=== PATIENT | male | born 1945 | race Caucasian/White ===

== ENCOUNTER → 2018-08-27 | Outpatient (CLI) | payer OTHER ==
[~2018-08-27] VITALS: Ht 180.3 cm; Wt 65.3 kg
[~2018-08-27] MED LIST: ASPIR 8181 MG PO; CO Q-10100 M1 PO; CRESTOR20 MG PO; FISH OIL 1,001000 M2 PO; LISINOPRIL10 MG PO; MIRTAZAPINE7.5 MG PO; PACERONE 200 M200 M1 PO; PAXIL10 MG PO; PROBIOTIC1 EAC1 PO; SPIRONOLACTONE25 M1 PO; VITAMIN D31000 UNIT PO
--- NOTE | 2018-08-27 12:44 | P ---
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 He has had an unexplained weight loss of about 26 pounds, which actually started several months prior to that diagnosis. Additional symptoms include anorexia and early satiety. The patient tells me initial workup with laboratory studies and imaging by Dr. Stroud were nondiagnostic. He denies any other GI symptoms. Specifically, there is no pain. He has had nausea, but no vomiting. PREOPERATIVE DIAGNOSES: Weight loss, anorexia and early satiety. POSTOPERATIVE DIAGNOSES: 1. A 2-3 cm sliding type hiatus hernia. 2. Mild erythematous gastritis. MEDICATIONS: Deep sedation with propofol per anesthesia. SPECIMENS: 1. Small bowel biopsy to rule out celiac disease. 2. Biopsies of gastritis to rule out Helicobacter pylori. ESTIMATED BLOOD LOSS: 3 mL. PROCEDURE: EGD with biopsy. FINDINGS: Prior to propofol sedation, the procedure of upper endoscopy was discussed with the patient as well as potential risks and its complications. He indicates he understands and desires to proceed. With the patient in the left lateral decubitus position, the Olympus video endoscope was inserted in the cervical esophagus under direct vision without difficulty. Examination of this organ through its entire length revealed normal esophageal mucosa down to the squamocolumnar junction. Squamocolumnar junction was inspected and noted to be unremarkable. The scope was advanced into a 2-3 cm sliding type hiatus hernia. The mucosa in the hernia was unremarkable. The scope was advanced fully into the stomach, which was examined on end view as well as retroflexed views. Examination of the stomach revealed patchy erythematous gastritis in the antrum. No ulcers or erosions were seen. There were no retained solids or liquids. There was no endoscopic evidence of outlet obstruction. Upon retroflexion, the hiatus hernia was seen. No other abnormalities were identified. Biopsies were obtained of the gastric mucosa. [address] [address] PROCEDURE REPORT Name: ALLYN KWON Room #: REG [facility] Boy#: [id number] Admission: 08/27/18 Attend Phys: Allyn Arellano MD Discharge: Date of : 43 Report #: [id number] The pylorus, duodenal bulb and postbulbar duodenal sweep were inspected and noted to be unremarkable. At that point, the scope was slowly withdrawn and careful circumferential views confirmed the above finding. Small bowel biopsy obtained to evaluate for celiac disease. The patient tolerated the procedure well. CONDITION OF THE PATIENT UPON DISCHARGE: Following procedure, the patient drowsy. He will be discharged home when fully ambulatory. INSTRUCTIONS TO THE PATIENT AND FAMILY AT THE TIME OF DISCHARGE: He has a mild gastritis, which is probably not clinically significant. The hiatus hernia also is not likely clinically significant factor with regards to his symptoms and problems. We will follow up on biopsies obtained today. We will have him proceed with a gastric emptying study to evaluate for gastroparesis. It is of interest to note that he actually started losing weight prior to his exposure and diagnosis of Yancey spotted fever. It is noted he does not have diabetes and reports there is no significant thyroid disease. There has been no recent change in medications. We will follow up on biopsies and follow through with gastric emptying study and make further recommendations as needed. <ELECTRONICALLY SIGNED> By: Allyn Arellano MD 08/27/18 1244 0930 1002 Allyn Arellano MD /nt
--- NOTE | 2018-08-31 16:10 | PATH ---
[facility] [address] [place] [address] PATHOLOGY RPT PROCEDURE Name: ALLYN OAKES Room #: REG [facility] [employer]#: [id number] Admission: 08/27/18 Date of : 43 Discharge: Report #: [id number] Path Case #: [id number] [facility] Accession Number: [id number] . 01 Material submitted: . PART A: BX SMALL BOWEL PART B: BX GASTRITIS . 01 Clinical history: . Weight loss Hiatus hernia, gastritis A: Rule out celiac disease B: Rule out H. pylori . 02 Diagnosis: A. Small bowel mucosa, rule out celiac disease, endoscopic biopsy: - No diagnostic abnormalities present. - Negative for villous blunting or increase in intraepithelial lymphocytes. . B. Gastric mucosa, gastritis rule out Helicobacter pylori, endoscopic biopsy: - Mild chronic active gastritis with features of reactive gastropathy. - Negative for intestinal metaplasia or atrophy. - Negative for Helicobacter pylori (properly controlled immunohistochemical stain performed). . (IUV:at;08/31/2018) QTA/08/31/2018 . 02 Electronically signed: . Mary Brandt MD, Pathologist NPI- [id number] . 01 Gross description: . A. The specimen is received in formalin, labeled "Allyn Oakes, small bowel BX" and consists of multiple fragments of soft palm tissue measuring 1.3 x 0.6 x 0.3 cm in aggregate which are entirely submitted in A1. . B. The specimen is received in formalin, labeled "Allyn Oakes, BX gastritis" and consists of multiple fragments of soft palm tissue measuring 1.4 x 0.6 x 0.2 cm in aggregate which are entirely submitted in B1. (SDY; 08/28/2018) SYU/SYU . 02 Pathologist provided ICD-10: K29.50, R63.4 [place] [address] PATHOLOGY RPT PROCEDURE Name: ALLYN OAKESJEISON Room #: REG CLI [facility]#: [id number] Admission: 08/27/18 Date of : 43 Discharge: Report #: [id number] Path Case #: [id number] . 02 CPT . 798464, [id number], [id number] Specimen Comment: A courtesy copy of this report has been sent to Specimen Comment: [phone], . Specimen Comment: Report sent to and Performed at: [address], [place], [place] [id number] MD Bertrand Felder MD Phone: [phone] Performed at: [address] [id number] MD Mary Brandt MD Phone: [phone]
== END | disposition home or self-care (01) ==
LOC: GI 06:28
DX: K29.50 Unspecified chronic gastritis without bleeding (principal); K44.9 Diaphragmatic hernia without obstruction or gangrene; K31.9 Disease of stomach and duodenum, unspecified; I10 Essential (primary) hypertension; E78.00 Pure hypercholesterolemia, unspecified; Z79.899 Other long term (current) drug therapy; Z79.82 Long term (current) use of aspirin; Z95.1 Presence of aortocoronary bypass graft; Z95.810 Presence of automatic (implantable) cardiac defibrillator; Z98.890 Other specified postprocedural states
CPT/HCPCS: 62110; 62900

== ENCOUNTER → 2018-09-14 | Outpatient (CLI) | payer OTHER ==
[~2018-09-14] MED LIST changes: +CARVEDILOL3.125 MG PO
== END ==
LOC: CAT 12:49
DX: J98.11 Atelectasis (principal); K75.9 Inflammatory liver disease, unspecified; R19.5 Other fecal abnormalities

== ENCOUNTER 2018-09-15 13:06 | Inpatient (IN) | payer OTHER ==
[~2018-09-15] VITALS: Ht 180.3 cm; Wt 67.9 kg
[~2018-09-15 13:06] MED LIST changes: -CARVEDILOL3.125 MG PO
[2018-09-15 15:10] VITALS: BP 87/54
[2018-09-15] MEDS ORDERED: CARVEDILOL3.125 MG PO (16:06)
[2018-09-15 18:08] LABS: BASOPHILS 0.8 % (0.0-2.0); EOSINOPHILS 0.3 % (0.0-3.0); HEMATOCRIT 46.1 % (42.0-52.0); HEMOGLOBIN 15.4 gm/dL (14.0-18.0); LYMPHOCYTES 6.3 % (24.0-44.0); MCHC 33.4 g/dL (28.0-37.0); MCV 86.9 fL (80.0-100.0); MONOCYTES 4.4 % (1.0-8.0); PLATELET COUNT 298 thou/uL (150-400); POLYS 88.2 % (36.0-66.0); RDW 18.2 % (10.5-14.5); WBC 19.2 thou/uL (4.0-11.0)
[2018-09-15 18:21] LABS: ALBUMIN 2.6 g/dL (3.4-5.0); CALCIUM 8.7 mg/dL (8.5-10.1); CREATININE 1.7 mg/dL (0.7-1.3); POTASSIUM 4.2 mmol/L (3.5-5.1); TOTAL BILIRUBIN 1.3 mg/dL (<0.1-1.0); TOTAL PROTEIN 7.2 g/dL (6.4-8.2)
--- NOTE | 2018-09-15 18:35 | NUR ---
VSS REMAINS NSR WITH PVC'S AND A PACED BEATS. LUNGS CLEAR RA SAT IS 96%. UP IN ROOM INDEPENDENTLY. NO C/O CHEST PAIN SOB. APPETITE REMAINS POOR, NO C/O NAAUSEA. WILL CONTINUE TO MONITER AND CARE FOR PT PER PLAN OF CARE
[2018-09-15 18:53] LABS: ANISOCYTOSIS 1+
[2018-09-15 19:12] LABS: INR 1.3; PROTIME 13.3 Seconds (9.3-11.4)
[2018-09-15 19:19] LABS: % SATURATION 54 % (20-39); IRON 82 ug/dL (65-175); TIBC 153 ug/dL (250-450)
[2018-09-15 20:24] VITALS: BP 80/51
[2018-09-15 22:55] VITALS: BP 108/67
[2018-09-15 23:31] VITALS: BP 98/62
[2018-09-15 23:49] VITALS: BP 149/84
--- NOTE | 2018-09-16 00:55 | NUR ---
2029 DAYAN STILL SOFT (80'S/40'S) DR. JAIMES ADVISED SOTALOL IS TO BE STARTED AT 2100. WILL RUN 0.5 L NS AND NS@ 10ML/H X 1 LITRE AND GIVE SOTALOL ORIGINALLY ORDERED. 2300 - PT RESPONDING FAVORABLY TO FLUIDS. NAD.
[2018-09-16 05:15] VITALS: BP 117/77
[2018-09-16 08:00] VITALS: BP 100/72
--- NOTE | 2018-09-16 08:19 | EKG ---
[place] [address] [facility] [place] [address] ELECTROCARDIOGRAM REPORT Name: ALLYN KWON Room #: 212-P ADM IN M.R.#: [id number] Admission: 09/15/18 Attend Phys: Trent Julio MD Discharge: Date of : 43 Report #: [id number] THIS REPORT FOR: //name// [facility] Test Date: 2018-09-15 Test Time: 15:19:13 Pat Name: ALLYN KWON Department: Room: Gender: M Explosive Ordnance Handler: Cuco VIDAL : 1945 Requested By: Perry Timmons Order Number: [id number] MD: Perry Timmons Measurements Intervals [place] Rate: 60 P: DC: 183 QRS: 23 QRSD: 134 T: 23 QT: 449 QTc: 449 Interpretive Statements Atrial-paced rhythm Nonspecific intraventricular conduction delay Inferior infarct, old Baseline wander in lead(s) V3 Compared to ECG 01/25/2006 11:03:54 atrial pacing is now present Ventricular premature complex(es) no longer present Electronically Signed On 09-16-2018 8:19:31 SHAKE FEEDER by Perry Timmons [email or web address] <ELECTRONICALLY SIGNED> By: Perry Timmons MD, [facility] 09/16/18 0819 1519 1519 Perry Timmons MD, [facility] /EPI
--- NOTE | 2018-09-16 08:36 | EKG ---
[place] [address] [facility] [place] [address] ELECTROCARDIOGRAM REPORT Name: ALLYN KWON Room #: 212-P ADM IN M.R.#: [id number] Admission: 09/15/18 Attend Phys: Trent Julio MD Discharge: Date of : 43 Report #: [id number] THIS REPORT FOR: //name// [facility] Test Date: 2018-09-16 Test Time: 07:14:59 Pat Name: ALLYN KWON Department: Room: 212 P Gender: M Producer Arborist Manager: ANGELA : 1945 Requested By: Patricia Bonilla Order Number: [id number] MD: Perry Timmons Measurements Intervals [place] Rate: 60 P: [place]: 215 QRS: -4 QRSD: 128 T: 27 QT: 509 QTc: 509 Interpretive Statements Atrial-paced rhythm Nonspecific intraventricular conduction delay Inferior infarct, old Compared to ECG 01/25/2006 11:03:54 QT interval has lengthened Electronically Signed On 09-16-2018 8:36:23 PETROLEUM INSPECTOR by Perry Timmons [email or web address] <ELECTRONICALLY SIGNED> By: Perry Timmons MD, [facility] 09/16/18 0836 3 3 Perry Timmons MD, [facility] /EPI
[2018-09-16 11:54] VITALS: BP 91/72
[2018-09-16 15:38] VITALS: BP 108/54
--- NOTE | 2018-09-16 17:01 | NUR ---
PT IS ALERT AND ORIENTED X4. ON ROOM AIR LUNGS ARE DIMINISHED. EATING WELL WITH MEALS. EXPRESSED AND DECREASED IN APPETITE BUT EATING MEALS TODAY. ATRIAL PACED ON THE MONITOR. VOIDS PER URINAL. FAMILY AT BEDSIDE FOR SUPPORT. NO PAIN ISSSUES. ABDOMEN IS SOFT AND FLAT BOWEL SOUNDS POSITIVE. UP AD NUZHAT. LABS AND TEST DONE TODAY FOR DIAGNOSTIC. WILL CONTINUE TO MONITOR AND ASSESS PER NURSING
[2018-09-16 20:42] VITALS: BP 112/71
[2018-09-17 01:06] LABS: CERULOPLASMIN 25.8 mg/dL (16.0-31.0)
--- NOTE | 2018-09-17 03:05 | NUR ---
ASSUMED PT CARE AT 1900. PT A/OX4, VITAL SIGNS STABLE. ASSESSMENT CHARTED. NO COMPLAINTS OF CHEST PAIN/PAIN. PT REQUESTED FOR 10MG OF AMBIAN TO HELP HIM SLEEP BETTER, WHICH WAS GIVEN. PT RESTED WELL THROUGH THE NIGHT. PROGRESSING TOWARD PLAN OF CARE. WILL CONTINUE TO MONITOR.
[2018-09-17 03:24] LABS: CALCIUM 7.7 mg/dL (8.5-10.1); CREATININE 1.3 mg/dL (0.7-1.3); POTASSIUM 4.1 mmol/L (3.5-5.1)
[2018-09-17 03:33] LABS: ALBUMIN 1.8 g/dL (3.4-5.0); DIRECT BILIRUBIN 0.6 mg/dL (<0.1-0.3); TOTAL BILIRUBIN 1.1 mg/dL (<0.1-1.0); TOTAL PROTEIN 5.2 g/dL (6.4-8.2)
[2018-09-17 04:11] VITALS: BP 105/72
--- NOTE | 2018-09-17 08:00 | EKG ---
[address] [employer] [place] [address] ELECTROCARDIOGRAM REPORT Name: ALLYN KWON Room #: 212-P ADM IN M.R.#: [id number] Admission: 09/15/18 Attend Phys: Trent Julio MD Discharge: Date of : 43 Report #: [id number] THIS REPORT FOR: //name// [facility] Test Date: 2018-09-16 Test Time: 11:29:55 Pat Name: ALLYN KWON Department: Room: 212 P Gender: M Acid Conditioner: Karishma MONTANO : 1945 Requested By: Ricardo Castellanos Order Number: [id number] MD: Perry Timmons Measurements Intervals [place] Rate: 75 P: CT: 227 QRS: -9 QRSD: 128 T: -43 QT: 413 QTc: 462 Interpretive Statements Atrial-paced complexes Prolonged CT interval Nonspecific intraventricular conduction delay Inferior infarct, old Compared to ECG 09/16/2018 07:14:59 No significant change was found Electronically Signed On 09-17-2018 8:00:02 MARBLEIZER by Perry Timmons [email or web address] <ELECTRONICALLY SIGNED> By: Perry Timmons MD, [facility] 09/17/18 0800 1129 1129 Perry Timmons MD, [facility] /EPI
[2018-09-17 08:17] VITALS: BP 98/66
--- NOTE | 2018-09-17 09:22 | EKG ---
[place] [address] [facility] [place] [address] ELECTROCARDIOGRAM REPORT Name: ALLYN KWON Room #: 212-P ADM IN M.R.#: [id number] Admission: 09/15/18 Attend Phys: Trent Julio MD Discharge: Date of : 43 Report #: [id number] THIS REPORT FOR: //name// [facility] Test Date: 2018-09-17 Test Time: 07:11:18 Pat Name: ALLYN KWON Department: Room: 212 P Gender: M Raw Mill Operator: ANGELA : 1945 Requested By: Patricia Bonilla Order Number: [id number] MD: Perry Timmons Measurements Intervals [place] Rate: 79 P: [place]: 217 QRS: 28 QRSD: 133 T: 14 QT: 456 QTc: 523 Interpretive Statements Atrial-paced rhythm Occasional premature ventricular complexes Baseline wander in lead(s) II,aVR,aVF Compared to ECG 09/16/2018 07:14:59 PVCs are now present Electronically Signed On 09-17-2018 9:22:44 BROKE BEATER MACHINE OPERATOR by Perry Timmons [email or web address] <ELECTRONICALLY SIGNED> By: Perry Timmons MD, [facility] 09/17/18 0922 0 0 Perry Timmons MD, [facility] /EPI
--- NOTE | 2018-09-17 10:49 | NUR ---
ASSUMED PATIENT CARE AT 0715. A&OX4, SLIGHTLY FORGETFUL. GASTRIC EMPTYING STUDY TODAY. UP ADLIB. LIVER ENZYMES ELEVATED, SEE LABS. DIAGNOSED WITH RMSP IN . PATIENT HAS LOST 27 LBS SINCE WITHOUT TRYING. SLOWLY WORKING TOWARDS GOALS. HOURLY ROUNDING TO CHECK NEEDS.
[2018-09-17 16:00] VITALS: BP 90/60
[2018-09-17 17:08] LABS: HAV IgM AB (ANTI-HAV IgM) Negative (Negative); HEPATITIS B SURFACE AG Negative (Negative); HEPATITIS C VIRUS AB <0.1 (0.0-0.9)
[2018-09-17 19:06] VITALS: BP 106/69
--- NOTE | 2018-09-18 03:36 | NUR ---
ASSUMED PT CARE AT 1900. PT A/OX4, VITAL SIGNS STABLE. ASSESSMENT CHARTED. NO COMPLAINTS OF CHEST PAIN/PAIN. PT RESTED WELL THROUGH THE NIGHT. PROGRESSING TOWARD PLAN OF CARE WILL CONTINUE TO MONITOR.
[2018-09-18 03:48] VITALS: BP 121/79
[2018-09-18 08:08] VITALS: BP 105/69
--- NOTE | 2018-09-18 08:19 | EKG ---
[address] [address] ELECTROCARDIOGRAM REPORT Name: ALLYN KWON Room #: 212-P ADM IN M.R.#: [id number] Admission: 09/15/18 Attend Phys: Trent Julio MD Discharge: Date of : 43 Report #: [id number] THIS REPORT FOR: //name// [facility] Test Date: 2018-09-18 Test Time: 07:17:34 Pat Name: ALLYN KWON Department: Room: 212 P Gender: M Drop Worker: ANGELA : 1945 Requested By: Patricia Bonilla Order Number: [id number] MD: Ricardo Castellanos Measurements Intervals [place] Rate: 76 P: [place]: 222 QRS: 10 QRSD: 130 T: -23 QT: 418 QTc: 471 Interpretive Statements Atrial-paced rhythm Nonspecific intraventricular conduction delay Inferior infarct, old Compared to ECG 09/17/2018 07:11:18 Intraventricular conduction delay now present Myocardial infarct finding now present Ventricular premature complex(es) no longer present Electronically Signed On 09-18-2018 8:19:19 BISQUE CLEANER by Ricardo Castellanos [email or web address] <ELECTRONICALLY SIGNED> By: Ricardo Castellanos MD 09/18/18818 6 6 Ricardo Castellanos MD /EPI
[2018-09-18] MEDS ORDERED: SOTALOL 120 MG120 MG PO (09:02)
--- NOTE | 2018-09-18 10:50 | NUR ---
Provided diet education with pt/ for gastroparesis. Pt hoping to go home today
[2018-09-18 12:20] LABS: ABSOLUTE NEUTROPHILS 16.5 thou/uL (1.4-8.2); BASOPHILS 0.8 % (0.0-2.0); EOSINOPHILS 0.4 % (0.0-3.0); HEMATOCRIT 42.6 % (42.0-52.0); HEMOGLOBIN 14.2 gm/dL (14.0-18.0); LYMPHOCYTES 8.2 % (24.0-44.0); MCH 28.7 pg (26.0-34.0); MCHC 33.2 g/dL (28.0-37.0); MCV 86.5 fL (80.0-100.0); MONOCYTES 6.1 % (1.0-8.0); PLATELET COUNT 239 thou/uL (150-400); POLYS 84.5 % (36.0-66.0); RBC 4.93 mil/uL (4.50-6.00); RDW 18.7 % (10.5-14.5); WBC 19.4 thou/uL (4.0-11.0)
[2018-09-18 12:38] VITALS: BP 105/69
[2018-09-18 13:00] LABS: ANISOCYTOSIS 1+; PLATELET ESTIMATE NORMAL
--- NOTE | 2018-09-18 14:19 | NUR ---
assessment as charted - meds as per mar- no co's of pain or nasuea. maggie diet and fluids. up ad vicki in room - patient home this afternoon - instruction re home care - follow and meds givent to patient and - instruction reliver biopsy for next week given to patient and and printed on d/c form. pt monitor and iv removed prior to d/c. no co's at time of d/c. left unit via wheelchair - ho9me via pvt vehicle accompanied by .
--- NOTE | 2018-09-18 16:23 | HC ---
[facility] [place] [address] CONSULTATION Name: ALLYN KWON Room #: 212-P [facility] IN M.R.#: [id number] Admission: 09/15/18 Attend Phys: Trent Julio MD Discharge: 09/18/18 Date of : 43 Report #: [id number] THIS REPORT FOR: //name// CC: Trent Stroud DATE OF SERVICE: 09/15/2018 REASON FOR CONSULTATION: Ventricular tachycardia, coronary artery disease. HISTORY OF PRESENT ILLNESS: The patient is a 73-year-old gentleman with a history of a mild ischemic cardiomyopathy with remote bypass surgery with a left internal mammary to the LAD, radial artery to the circumflex, vein graft to the intermediate and vein graft to the right coronary artery (1998). His history includes post bypass out of hospital cardiac arrest with subsequent Medtronic dual chamber pacer defibrillator placement. He has had multiple episodes of appropriately treated ventricular tachycardia. This malignant rhythm disturbance has been suppressed with amiodarone. Recently, his history includes serologies that have been positive for [place] spotted fever, mild nausea, anorexia and significant weight loss. He has had an unintentional 30 pound weight loss. Denies abdominal pain, chest pain, heart failure symptoms, near syncope or syncope. His recent evaluation has included elevated liver function studies and a CT of the chest and abdomen, which demonstrated diffuse edema involving the liver with periportal edema and cholelithiasis. Recent upper endoscopy demonstrated mild chronic gastritis. Due to progressive decline, he is now admitted for further evaluation. OUTPATIENT MEDICATIONS: Included aspirin 81 mg daily, lisinopril 10 mg daily, Remeron, Paxil 10 mg daily, rosuvastatin 20 mg daily, Aldactone 25 mg daily and vitamin D. PAST MEDICAL HISTORY: Medical records have been reviewed and include a history of remote pneumonia, coronary artery bypass grafting, tonsillectomy, partial colectomy for diverticulitis. SOCIAL HISTORY: He is . He is a nonsmoker. FAMILY HISTORY: Notable for premature coronary artery disease in parents. REVIEW OF SYSTEMS: All systems negative except as that noted above. PHYSICAL EXAMINATION: GENERAL: A pleasant gentleman, in no distress. VITAL SIGNS: Blood pressure is 87/54, heart rate of 80 and regular. He is afebrile, 5 feet 11 inches tall, 143 pounds. HEENT: There are neither xanthelasma, subcutaneous xanthomata, oral mucosal or [facility] [address] [place] [address] CONSULTATION Name: ALLYN KWON Room #: 212-P [facility] IN M.R.#: [id number] Admission: 09/15/18 Attend Phys: Trent Julio MD Discharge: 09/18/18 Date of : 43 Report #: [id number] digital cyanosis or kyphoscoliosis present. CHEST: Clear to auscultation and percussion. CARDIOVASCULAR: Regular rate and rhythm with a normal S1, S2. ABDOMEN: Soft and nontender. No rebound or guarding. EXTREMITIES: Without cyanosis, clubbing or edema. Radial pulses are 2+. NEUROLOGIC: He is alert with a nonfocal exam. LABORATORY DATA: Blood work remains pending. Recent echocardiogram, EF 45-50% with hypokinesis involving the base of the inferior and inferolateral fuller. Recent nuclear stress study, which I reviewed demonstrated complete infarct involving the base of the inferior wall with no luis-infarct ischemia. IMPRESSION: 1. Anorexia, unintentional weight loss. 2. 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 3. Coronary artery disease; mild ischemic cardiomyopathy with mild inferobasal hypokinesis, ejection fraction 45-50%. 4. Paroxysmal ventricular tachycardia; prior dual chamber Medtronic ICD. 5. History of remote [id number] cardiac arrest. 6. Hypertension. 7. Dyslipidemia. 8. History of bypass surgery with very recent nonischemic stress study. RECOMMENDATIONS: 1. Gastroenterology and infectious disease consultations. 2. Discontinue amiodarone. 3. Sotalol loading. I have discussed these issues with Dr. Castellanos, Dr. Julio and Dr. Arellano. Liver biopsy serologies are planned. Further thoughts will be forthcoming based on full completion of the database and based on his clinical course. I have discussed these issues with the patient in detail. Thank you for asking me to participate in his care. <ELECTRONICALLY SIGNED> By: Perry Timmons MD, [facility] 09/18/18 1623 1735 2225 Perry Timmons MD, FAC /nt
== END 2018-09-18 14:20 | disposition home or self-care (01) | DRG 441 ==
LOC: 2N 13:06 → ENTRNSPT 09-18 13:59 → EDTRNSPTSTS 09-18 14:01 → 2N 09-18 14:20
PROVIDERS: Internal Medicine; Internal Medicine Gastroenterology; Nurse Practitioner; ADMIT Specialist
DX: K71.6 Toxic liver disease with hepatitis, not elsewhere classified (principal); E43 Unspecified severe protein-calorie malnutrition; N17.9 Acute kidney failure, unspecified; I47.1 Supraventricular tachycardia; I25.5 Ischemic cardiomyopathy; I25.10 Atherosclerotic heart disease of native coronary artery without angina pectoris; I10 Essential (primary) hypertension; E78.5 Hyperlipidemia, unspecified; K80.80 Other cholelithiasis without obstruction; T46.2X5A Adverse effect of other antidysrhythmic drugs, initial encounter; I73.9 Peripheral vascular disease, unspecified; E78.00 Pure hypercholesterolemia, unspecified; I65.23 Occlusion and stenosis of bilateral carotid arteries; D72.829 Elevated white blood cell count, unspecified; R62.7 Adult failure to thrive; Z95.1 Presence of aortocoronary bypass graft; Z90.49 Acquired absence of other specified parts of digestive tract; Z82.49 Family history of ischemic heart disease and other diseases of the circulatory system; Z95.0 Presence of cardiac pacemaker; Z79.82 Long term (current) use of aspirin; Z79.899 Other long term (current) drug therapy; Y92.89 Other specified places as the place of occurrence of the external cause; Z68.20 Body mass index [BMI] 20.0-20.9, adult
CPT/HCPCS: 10081

== ENCOUNTER → 2018-09-22 | Outpatient (CLI) | payer OTHER ==
[~2018-09-22] VITALS: Ht 180.3 cm; Wt 63.5 kg
[~2018-09-22] MED LIST changes: +ASPIR 8181 M1 PO; +CARVEDILOL3.125 MG PO; +SOTALOL 120 MG120 MG PO
[2018-09-22 09:29] VITALS: BP 133/85
[2018-09-22 09:37] LABS: HEMATOCRIT 46.6 % (42.0-52.0); HEMOGLOBIN 15.7 gm/dL (14.0-18.0); MCH 29.3 pg (26.0-34.0); MCHC 33.8 g/dL (28.0-37.0); MCV 86.7 fL (80.0-100.0); RBC 5.37 mil/uL (4.50-6.00); WBC 24.1 thou/uL (4.0-11.0)
[2018-09-22 09:48] LABS: INR 1.4; PROTIME 14.4 Seconds (9.3-11.4)
[2018-09-22 10:21] VITALS: BP 116/65
[2018-09-22 10:25] VITALS: BP 100/49
[2018-09-22 10:30] VITALS: BP 94/60
[2018-09-22 10:32] VITALS: BP 96/48
--- NOTE | 2018-09-22 10:58 | NUR ---
RECIEVED PATIENT FROM IR POST LIVER BIOPSY FOR RECOVERY, BANDAID TO UPPER MID ABD C/D/I, DENIES PAIN, DENIES NEEDS, SPRITE GIVEN AND TRAY ORDERED, B/P LOW /, WILL CONT TO MONITOR, FAMILY AT BEDSIDE
--- NOTE | 2018-09-22 13:19 | NUR ---
PATIENTS B/P HAD BEEN LOW, 400 CC NS FLUID BOLUS GIVEN, LATEST B/P 105/65, PATIENT UNSYMPTOMATIC, BA TO UPPER MID ABD C/D/I, NO C/O PAIN, SL REMOVED, D/C INSTRUCTIONS GIVEN TO PATIENT AND , V/U, APPEARS STABLE FOR DISCHARGE
--- NOTE | 2018-10-12 15:06 | PATH ---
[facility] [address] [address] PATHOLOGY RPT PROCEDURE Name: ALLYN OAKES Room #: REG [facility] MMakeda.#: [id number] ������������������ Admission: 09/22/18 ������������������ Date of : 43 Discharge: Report #: [id number] Path Case #: [id number] [facility] Accession Number: [id number] . 01 Material submitted: . LEFT LIVER LOBE BIOPSY . 01 Clinical history: . Hepatitis . 02 Diagnosis: Liver, left lobe, needle core biopsy: - Moderate acute hepatitis with extensive Vilma body formation and scattered mild bile duct injury (please see comment). (IUV:marylu; 09/23/2018) MBR/09/23/2018 . 02 Comment: Examination shows adequately sampled liver parenchyma in 3 cores. Zone one shows significant Vilma-Denk body formation associated with glycogenated nuclei and extensive ballooning degeneration. Moderate acute inflammation associated with neutrophils is present within the portal tracts, as well as scattered Vilma bodies resembling "satellitosis". Focal mild bile duct damage is present in addition to hepatocyte neetu formation, as well as acute inflammation and bile ductular proliferation. These changes are compatible with a cholestatic pattern. There are no granulomata, or microgranulomas, or lymphoid aggregates, atypical lymphocytes associated with mitotic figures, lobular lymphocytic infiltrate, florid duct lesions, viral inclusions or sclerosing bile duct lesions present. There is no steatosis identified. . Special stains are performed. Trichrome stain shows markedly enlarged portal tracts with mild periportal fibrosis. Bridging fibrosis is not identified. Reticulin stain shows foci of condensation. PAS with and without diastase show Kupfer cells and the Vilma-Denk bodies. There are no intracytoplasmic globules in zone one. Iron stain is negative. . The histomorphologic features support the clinically suspected amiodarone toxicity. The morphologic features argue against a viral induced hepatitis, including the infectious mononucleosis or EBV associated hepatitis, as well as autoimmune liver disease. Lack of steatosis argues against an alcohol induced hepatitis (along with the transaminase elevation pattern). Please correlate clinically. . (IUV:patcher bowling ball; 09/23/2018) . 02 Addendum: . [address] [address] PATHOLOGY RPT PROCEDURE Name: DOYLEJEISON Room #: REG CLYamileth Brunson#: [id number] ������������������ Admission: 09/22/18 ������������������ Date of : 43 Discharge: Report #: [id number] Path Case #: [id number] This addendum is issued subsequent to performing a properly controlled Congo red stain to identify amyloid at the request of Dr. Timothy Julio. The properly controlled stain is performed on block A2. There is no apple-green birefrigence identified on the stain. The originally rendered interpretation remains unchanged. (IUV:elio; 10/09/2018) . . Professional services performed by [facility] at [facility], [address], [place] [address]. Technical services performed by [facility] at [address] [place] [address], [address], [place] [address]. QTP/10/09/2018 Addendum Electronically Signed by Mary Brandt MD, Pathologist Addendum #2: Addendum is issued after a conversation with one of the phycisians (caring for the patient at [facility]) on Friday evening, 10/09/18. The predominant features are those of acute hepatitis overlapped with a cholestatic pattern. The inflammatory infiltrate consists of lymphocytes, neutrophils, rare eosinophils, and rare plasma cells. Features suggestive of acute and chronic autoimmune hepatitis are not noted. The originally rendered diagnoses and interpretation are unchanged. This case was coreviewed by Dr. Shelia Reid as well, who concurs with my interpretation. (IUV:patcher bowling ball; 10/09/2018) IZV/10/12/2018 Addendum Electronically Signed by Mary Brandt MD, Pathologist . 02 Electronically signed: . Mary Brandt MD, Pathologist NPI- [id number] . 01 Gross description: . Received in formalin labeled "Allyn Oakes, left lobe liver," are 3 distinct needle cores of palm soft tissue ranging from 0.6 to 1.4 cm in length and measuring 0.1 cm each in diameter. The specimen is submitted entirely in cassette A1 through A3. (TSD; 09/22/2018) TOB/TOB . 02 Pathologist provided ICD-10: K71.9 . 02 CPT . 622912, 529665, 779630, 416084, 521418, 294852, 189675 Performed at: [address] [facility], [place], [place] [id number] MD Bertrand Felder MD Phone: [phone] [facility] [address] [place] [address] PATHOLOGY RPT PROCEDURE Name: ALLYN OAKES Room #: ABIDA Brunson#: [id number] ������������������ Admission: 09/22/18 ������������������ Date of : 43 Discharge: Report #: [id number] Path Case #: [id number] Performed at: [facility] [address], [place] [id number] MD Mary Brandt MD Phone: [phone]
== END | disposition home or self-care (01) ==
LOC: ULTRA 08:57
PROVIDERS: Internal Medicine
DX: B17.9 Acute viral hepatitis, unspecified (principal); K71.9 Toxic liver disease, unspecified; S36.13XA Injury of bile duct, initial encounter; I10 Essential (primary) hypertension; I25.2 Old myocardial infarction; E78.00 Pure hypercholesterolemia, unspecified; I48.91 Unspecified atrial fibrillation; Z95.1 Presence of aortocoronary bypass graft; Z98.0 Intestinal bypass and anastomosis status; Z98.890 Other specified postprocedural states; Z79.899 Other long term (current) drug therapy; Z79.01 Long term (current) use of anticoagulants; Z95.810 Presence of automatic (implantable) cardiac defibrillator; Z79.82 Long term (current) use of aspirin; X58.XXXA Exposure to other specified factors, initial encounter; Y93.89 Activity, other specified; Y92.89 Other specified places as the place of occurrence of the external cause; Y99.8 Other external cause status